=== PATIENT | female | born 1950 | race Caucasian/White ===

== ENCOUNTER 2016-05-03 07:27 | Emergency (ER) | payer MEDICARE, OTHER ==
[2016-05-03 08:12] LABS: #Basophils 0.1 thou/uL (0.0-0.2); #Eosinphils 0.1 thou/uL (0.0-0.7); #Monocytes 0.5 thou/uL (0.11-0.59); #Neutrophils 5.2 thou/uL (1.40-6.50); %Basophils 1.5 % (0.0-1.0); %Eosinophils 1.3 % (0.0-10.0); %Lymphocytes 25.2 % (21.0-51.0); %Monocytes 6.4 % (0.0-10.0); Mean Platelet Volume 6.7 fL (7.4-10.4); Red Blood Cell (RBC) Count 4.56 mill/uL (4.20-5.40); White Blood Cell (WBC) Count 7.9 thou/uL (4.8-10.8)
[2016-05-03 08:17] LABS: Prothrombin Time 13.4 SEC (12.0-14.7)
[2016-05-03 08:25] LABS: ALT (SGPT) 12 U/L (0-55); AST (SGOT) 13 U/L (5-34); Alkaline Phosphatase 59 U/L (40-150); Anion Gap 14 mmol/L (10-20); BUN (Urea Nitrogen) 8 mg/dL (9.8-20.1); Bilirubin, Total 0.7 mg/dL (0.2-1.2); Calc. Creatinine Clearance 0 mL/min (70-130); Carbon Dioxide 23 mmol/L (23-31); Chloride 105 mmol/L (98-107); Estimated GFR-MDRD 75; Globulin 2.1 g/dL (2.4-3.5); Lipase 20 U/L (8-78); Protein, Total 5.9 g/dL (5.8-8.1)
[2016-05-03] MEDS ORDERED: Iopamidol 370 76% 100 ML VIAL ONE (09:00)
--- NOTE | 2016-05-03 09:27 | CT ---
CT OF ABDOMEN AND PELVIS WITH IV CONTRAST: Date: 05-03-16 Comparison: None. History: GI bleeding, abdominal pain. Technique: Serial axial CT imaging is obtained at 5 mm intervals from lung bases through the pubic symphysis with IV contrast. Coronal reformatted imaging obtained. FINDINGS: The imaged lung bases are unremarkable. No free intraperitoneal air is noted. A lap band is in zuhair ce, not fully assessed on this exam. Imaged lung bases are grossly unremarkable. The liver, spleen, gallbladder, pancreas, adrenal glands and kidneys are grossly unremarkable. No significant free fluid is seen in the abdomen or pelvis. There is a segment of thick walled desc ending colon with mild adjacent pericolonic fat stranding. This thick walled segment of descending colon/sigmoid colon measures at least 10 cm in length. No associated extraluminal gas or evidence o f abscess seen. The segment of abnormal colon demonstrates no significant diverticular disease. No evidence for bowel obstruction. No right lower quadrant inflammatory change seen to suggest appe ndicitis. There is scattered atherosclerotic calcification of the abdominal aorta and its branches. There is a circumaortic left renal vein. There is no lymphadenopathy in the pelvis, retroperitoneum, or mesentery. The osseous structures de monstrate lower lumbar spine facet hypertrophic change with no worrisome lytic or blastic bone lesio n. IMPRESSION: 1. Thick walled 10 cm segment of distal descending colon/proximal sigmoid colon with mild adjacent inflammatory fat stranding. These findings are suspicious for a focal area of nonspecific colitis w hich is likely inflammatory/infectious in nature. Ischemic bowel in this region is a less likely po ssibility given location. Recommend direct visualization following treatment and resolution of the acute symptoms to exclude an underlying colonic mass lesion. 2. Lap band in place. If further assessment of the lap band is clinically warranted, a nonemergent follow up barium swallow is suggested. Code T POS: STEPHEN
[2016-05-03] MEDS ORDERED: Ciprofloxacin Lactate/D5W 400 mg/200 ml Premix ONE (09:36)
== END 2016-05-03 10:37 | disposition home or self-care (01) ==
LOC: NAV ERS 07:27
DX: K52.9 Noninfective gastroenteritis and colitis, unspecified (principal); F32.9 Major depressive disorder, single episode, unspecified; F41.9 Anxiety disorder, unspecified; Z79.899 Other long term (current) drug therapy
CPT/HCPCS: 74177; 80053; 82272; 83690; 85025; 85610; 85730; 96365; J0744

== ENCOUNTER 2018-07-25 23:26 | Emergency (ER) | payer MEDICARE, OTHER ==
[2018-07-26 00:16] LABS: #Basophils 0.1 thou/uL (0.0-0.2); #Eosinphils 0.1 thou/uL (0.0-0.7); #Lymphocytes 0.8 thou/uL (1.20-3.40); #Monocytes 0.6 thou/uL (0.11-0.59); #Neutrophils 7.7 thou/uL (1.40-6.50); %Basophils 1.1 % (0.0-1.0); %Lymphocytes 8.1 % (21.0-51.0); %Monocytes 6.2 % (0.0-10.0); %Neutrophils 83.6 % (42.0-75.0); Hemoglobin 8.9 g/dL (12.0-16.0); Mean Corpuscular HGB CONC 32.4 g/dL (32.0-36.0); Mean Corpuscular Hemoglobin 27.9 pg (27.0-31.0); Mean Corpuscular Volume 86.1 fL (78.0-98.0); Mean Platelet Volume 6.6 fL (7.4-10.4); Platelet Count 224 thou/uL (130-400); RBC Distribution Width 11.6 % (11.5-14.5); Red Blood Cell (RBC) Count 3.18 mill/uL (4.20-5.40); White Blood Cell (WBC) Count 9.2 thou/uL (4.8-10.8)
[2018-07-26 00:29] LABS: ALT (SGPT) 15 U/L (8-55); AST (SGOT) 32 U/L (5-34); Albumin 3.3 g/dL (3.4-4.8); Alkaline Phosphatase 56 U/L (40-150); Anion Gap 14 mmol/L (10-20); BUN (Urea Nitrogen) 12 mg/dL (9.8-20.1); Bilirubin, Total 0.8 mg/dL (0.2-1.2); Calc. Creatinine Clearance 0 mL/min (70-130); Calcium 8.7 mg/dL (7.8-10.44); Carbon Dioxide 22 mmol/L (23-31); Chloride 101 mmol/L (98-107); Estimated GFR-MDRD 73; Globulin 2.1 g/dL (2.4-3.5); Glucose 108 mg/dL (80-115); Potassium 3.5 mmol/L (3.5-5.1); Protein, Total 5.4 g/dL (6.0-8.3); Sodium 133 mmol/L (136-145)
[2018-07-26 01:18] LABS: Bilirubin Negative (Negative); Blood, Urine Large (Negative); Clarity Clear (Clear); Glucose, Urine (Dipstick) Negative (Negative); Leukocyte Trace (Negative); Nitrite Negative (Negative); Protein, Urine (Dipstick) Negative (Neg-Trace); Urobilinogen 0.2 mg/dL (0.2-1.0)
[2018-07-26 01:21] LABS: Squamous Epithelial 0-3 HPF (0-3); WBC/HPF 0-3 HPF (0-3)
[2018-07-26 01:22] LABS: Bacteria/HPF None Seen HPF (None Seen)
--- NOTE | 2018-07-26 09:00 | CT ---
PRELIMINARY REPORT/[facility]/EMERGENCY AFTER HOURS PROCEDURE: EXAM: CT Head Without Contrast EXAM DATE/TIME: 07/26/2018 12:25 AM CLINICAL HISTORY: 68 years old, female; Signs and symptoms; Syncope and collapse; Patient HX: Altered mental status; Sl urred speech; Fell x 2 today TECHNIQUE: Imaging protocol: Axial computed tomography images of the head without contrast. Coronal and sagittal reformatted images were created and reviewed. Radiation optimization: All CT scans at this facility use at least one of these dose optimization techniques: automated exposure control; mA and/or kV adju stment per patient size (includes targeted exams where dose is matched to clinical indication); or iterative reconstruction. COMPARISON: No relevant prior studies available. FINDINGS: Brain: Normal. No hemorrhage. Unremarkable white matter. No mass effect. Ventricles: Normal. No ventriculomegaly. Bones/joints: Unremarkable. No acute fracture. Sinuses: Visualized sinuses are unremarkable. No fluid levels. Mastoid air cells: Visualized mastoid air cells are well aerated. No mastoid effusion. Soft tissues: Unremarkable. IMPRESSION: No acute intracranial abnormality. Thank you for allowing us to participate in the care of your patient. Dictated and Authenticated by: Danny Miguel MD 07/26/2018 1:11 AM Central Time ([place] & [place]) FINAL REPORT CT BRAIN WITHOUT CONTRAST: I agree with the preliminary report provided. No acute intracranial abnormality demonstrated. POS: BH
== END 2018-07-26 01:51 | disposition home or self-care (01) ==
LOC: NAV ERS 23:26
DX: R47.81 Slurred speech (principal); R41.0 Disorientation, unspecified; T40.2X5A Adverse effect of other opioids, initial encounter; M25.551 Pain in right hip; F41.9 Anxiety disorder, unspecified; F32.9 Major depressive disorder, single episode, unspecified; Z79.899 Other long term (current) drug therapy
CPT/HCPCS: 70450; 80053; 81003; 81015; 85025

== ENCOUNTER 2019-12-11 11:34 | Emergency (ER) | payer MEDICARE, OTHER ==
[2019-12-11] MEDS ORDERED: Acetaminophen 500 MG TAB ONE (11:49)
[2019-12-11] MEDS ORDERED: Ondansetron PF 4 MG/2 ML Vial ONE (12:24)
[2019-12-11 12:25] LABS: #Basophils 0.1 thou/uL (0.0-0.2); #Eosinphils 0.1 thou/uL (0.0-0.7); #Lymphocytes 1.1 thou/uL (1.20-3.40); #Monocytes 0.4 thou/uL (0.11-0.59); %Basophils 0.3 % (0.0-1.0); %Eosinophils 0.3 % (0.0-10.0); %Lymphocytes 6.8 % (21.0-51.0); %Monocytes 2.6 % (0.0-10.0); %Neutrophils 89.9 % (42.0-75.0); Hemoglobin 12.6 g/dL (12.0-16.0); Mean Corpuscular HGB CONC 32.4 g/dL (32.0-36.0); Mean Corpuscular Hemoglobin 28.3 pg (27.0-31.0); Mean Corpuscular Volume 87.3 fL (78.0-98.0); Mean Platelet Volume 6.9 fL (7.4-10.4); Platelet Count 334 thou/uL (130-400); RBC Distribution Width 11.7 % (11.5-14.5); Red Blood Cell (RBC) Count 4.44 mill/uL (4.20-5.40); White Blood Cell (WBC) Count 15.6 thou/uL (4.8-10.8)
[2019-12-11 12:32] LABS: Bilirubin Negative (Negative); Clarity Clear (Clear); Glucose, Urine (Dipstick) Negative (Negative); Ketone, Urine Negative (Negative); Leukocyte Negative (Negative); Nitrite Negative (Negative); Protein, Urine (Dipstick) Negative (Neg-Trace); Urobilinogen 0.2 mg/dL (Less than 2)
--- NOTE | 2019-12-11 12:32 | RAD ---
2 VIEW CHEST: Date: 12/11/2019 HISTORY: Cough and shortness of breath. COMPARISON: No recent comparison film. A 2012 portable film is compared. FINDINGS: No evidence of infiltrate. Mild interstitial prominence bilaterally. The vascular markings are within normal range. Heart size is normal. IMPRESSION: Mild increased interstitium bilaterally. No focal infiltrate or consolidation. POS: AGW
[2019-12-11 12:35] LABS: Blood, Urine Negative (Negative)
[2019-12-11 12:38] LABS: ALT (SGPT) 7 U/L (8-55); AST (SGOT) 11 U/L (5-34); Albumin 3.8 g/dL (3.4-4.8); Alkaline Phosphatase 57 U/L (40-110); Anion Gap 15 mmol/L (10-20); BUN (Urea Nitrogen) 12 mg/dL (9.8-20.1); Bilirubin, Total 0.6 mg/dL (0.2-1.2); Calc. Creatinine Clearance 0 mL/min (70-130); Calcium 9.2 mg/dL (7.8-10.44); Carbon Dioxide 23 mmol/L (23-31); Chloride 104 mmol/L (98-107); Estimated GFR-MDRD 68; Globulin 2.5 g/dL (2.4-3.5); Glucose 109 mg/dL (83-110); Potassium 4.1 mmol/L (3.5-5.1); Protein, Total 6.3 g/dL (6.0-8.3); Sodium 138 mmol/L (136-145)
[2019-12-11] MEDS ORDERED: Ibuprofen 200 MG TAB ONE (13:02)
[2019-12-11 13:31] LABS: Lactic Acid 2.1 mmol/L (0.5-2.2)
[2019-12-12 11:45] LABS: SARS-CoV-2 MS2 Positive; SARS-CoV-2 N Gene Negative; SARS-CoV-2 S Gene Negative; SARS-CoV-2 by NAA Not Detected (NotDetected); SARS-CoV-2 orf1ab Negative
== END 2019-12-11 14:10 | disposition home or self-care (01) ==
LOC: NAV ERS 11:34
DX: R50.9 Fever, unspecified (principal); Z20.828 Contact with and (suspected) exposure to other viral communicable diseases; F41.9 Anxiety disorder, unspecified; F32.9 Major depressive disorder, single episode, unspecified; Z85.41 Personal history of malignant neoplasm of cervix uteri; Z79.899 Other long term (current) drug therapy
CPT/HCPCS: 71046; 80053; 81003; 83605; 85025; 87040; 87635; 87804; 96374; J2405; U0003

== ENCOUNTER 2022-06-28 15:13 | Outpatient (CLI) | payer MEDICARE, OTHER ==
[2022-06-29 01:30] LABS: Iron 16 ug/dL (50-170); Iron Binding Capacity, Total 443 mcg/dL (265-497)
== END 2022-06-28 15:14 | disposition home or self-care (01) ==
LOC: NAV RAD 15:13
PROVIDERS: ATTEND Nurse Practitioner Family
DX: D64.9 Anemia, unspecified (principal)
CPT/HCPCS: 36415; 71046; 82728; 83540; 83550

== ENCOUNTER 2022-07-23 16:06 | Emergency (ER) | payer MEDICARE, OTHER ==
[2022-07-23] MEDS ORDERED: methylPREDNISolone Acetate 40 mg/ml Vial ONE (17:04)
== END 2022-07-23 17:28 | disposition home or self-care (01) ==
LOC: NAV ERS 16:06
DX: T78.40XA Allergy, unspecified, initial encounter (principal); K21.9 Gastro-esophageal reflux disease without esophagitis
CPT/HCPCS: 96372; 99283; J1030

== ENCOUNTER 2023-03-20 12:18 | Emergency (ER) | payer MEDICARE, OTHER ==
[2023-03-20 13:58] LABS: #Eosinphils 0.1 thou/uL (0.0-0.7); #Lymphocytes 0.8 thou/uL (1.20-3.40); #Monocytes 0.1 thou/uL (0.11-0.59); #Neutrophils 0.9 thou/uL (1.40-6.50); %Basophils 2.2 % (0.0-1.0); %Eosinophils 3.6 % (0.0-10.0); %Lymphocytes 39.4 % (21.0-51.0); %Monocytes 6.8 % (0.0-10.0); Hematocrit 28.3 % (36.0-47.0); Hemoglobin 9.7 g/dL (12.0-16.0); Mean Corpuscular HGB CONC 34.4 g/dL (32.0-36.0); Mean Corpuscular Hemoglobin 34.2 pg (27.0-31.0); Mean Corpuscular Volume 99.5 fl (78.0-98.0); Mean Platelet Volume 6.4 fL (7.4-10.4); Platelet Count 206 10x3/uL (130-400); RBC Distribution Width 13.8 % (11.5-14.5); Red Blood Cell (RBC) Count 2.85 mill/uL (4.20-5.40)
[2023-03-20 14:10] LABS: ALT (SGPT) 12 U/L (8-55); AST (SGOT) 14 U/L (5-34); Albumin 3.3 g/dL (3.4-4.8); Alkaline Phosphatase 52 U/L (40-110); Anion Gap 12 mmol/L (10-20); BUN (Urea Nitrogen) 13 mg/dL (9.8-20.1); Bilirubin, Total 1.8 mg/dL (0.2-1.2); Calc. Creatinine Clearance 0 mL/min (70-130); Calcium 8.6 mg/dL (7.8-10.44); Carbon Dioxide 23 mmol/L (23-31); Chloride 102 mmol/L (98-107); Estimated GFR 91; Glucose 100 mg/dL (83-110); Potassium 3.7 mmol/L (3.5-5.1); Protein, Total 5.3 g/dL (5.8-8.1); Sodium 133 mmol/L (136-145)
[2023-03-20 14:45] LABS: Bilirubin Small (Negative); Blood, Urine Trace (Negative); Glucose, Urine (Dipstick) 100 mg/dL (Negative); Ketone, Urine 40 mg/dL (Negative); Leukocyte Negative (Negative); Nitrite Negative (Negative); Protein, Urine (Dipstick) Negative (Neg-Trace); Urobilinogen 0.2 mg/dL (Less than 2)
[2023-03-20 15:02] LABS: CAUTI Indications for Culture Alt mental st,lethar; Clarity Hazy (Clear); RBC/HPF 0-3 HPF (0-3); Squamous Epithelial 0-3 HPF (0-3); WBC/HPF 0-3 HPF (0-3)
[2023-03-20 15:03] LABS: Calcium Oxalate Crystals 1+ HPF (None Seen)
[2023-03-20 15:04] LABS: Urine Culture Reflex No No
[2023-03-20] MEDS ORDERED: traMADol HCl 50 MG TAB ONE (15:27)
== END 2023-03-20 15:50 | disposition home or self-care (01) ==
LOC: NAV LAB 12:18 → NAV ERS 15:50
DX: S22.42XA Multiple fractures of ribs, left side, initial encounter for closed fracture (principal); R56.9 Unspecified convulsions; W18.30XA Fall on same level, unspecified, initial encounter
CPT/HCPCS: 80053; 81001; 85025; 93005

== ENCOUNTER 2023-04-10 17:37 | Inpatient (IN) | payer MEDICARE, OTHER ==
[2023-04-10] MEDS ORDERED: Senokot S 8.6-50 MG TAB PO PRN (18:38)
[2023-04-10] MEDS ORDERED: Ondansetron ODT 4 MG TAB SL PRN (18:38)
[2023-04-10] MEDS ORDERED: Bisacodyl 5 MG TAB PO PRN (18:38)
[2023-04-10] MEDS ORDERED: Loperamide HCl 2 MG CAP PO PRN (18:38)
[2023-04-10] MEDS ORDERED: Meropenem 1 GM VIAL IVPB SCH (20:00)
[2023-04-10] MEDS: Meropenem 1 GM in Sodium Chloride 0.9% 100 ML IVPB SCH (20:44)
[2023-04-10] MEDS: Famotidine 20 MG TAB PO SCH (20:45)
[2023-04-10] MEDS: Sodium Bicarbonate Tab 325 MG TAB PO SCH (20:45)
[2023-04-11 06:15] LABS: #Basophils 0.1 thou/uL (0.0-0.2); #Lymphocytes 0.7 thou/uL (1.20-3.40); #Monocytes 0.3 thou/uL (0.11-0.59); #Neutrophils 0.1 thou/uL (1.40-6.50); %Eosinophils 2.7 % (0.0-10.0); %Lymphocytes 56.5 % (21.0-51.0); %Monocytes 25.4 % (0.0-10.0); %Neutrophils 9.5 % (42.0-75.0); ALT (SGPT) 10 U/L (8-55); AST (SGOT) 12 U/L (5-34); Albumin 2.3 g/dL (3.4-4.8); Alkaline Phosphatase 59 U/L (40-110); Anion Gap 10 mmol/L (10-20); BUN (Urea Nitrogen) 4 mg/dL (9.8-20.1); Bilirubin, Total 1.4 mg/dL (0.2-1.2); Calc. Creatinine Clearance 103 mL/min (70-130); Calcium 8.1 mg/dL (7.8-10.44); Carbon Dioxide 24 mmol/L (23-31); Chloride 102 mmol/L (98-107); Estimated GFR 96; Globulin 1.4 g/dL (2.4-3.5); Glucose 89 mg/dL (83-110); Hematocrit 25.9 % (36.0-47.0); Hemoglobin 9.1 g/dL (12.0-16.0); Mean Corpuscular HGB CONC 35.3 g/dL (32.0-36.0); Mean Corpuscular Hemoglobin 34.4 pg (27.0-31.0); Mean Corpuscular Volume 97.6 fl (78.0-98.0); Mean Platelet Volume 5.6 fL (7.4-10.4); Platelet Count 244 10x3/uL (130-400); Potassium 3.3 mmol/L (3.5-5.1); Protein, Total 3.7 g/dL (5.8-8.1); RBC Distribution Width 16.5 % (11.5-14.5); Red Blood Cell (RBC) Count 2.65 mill/uL (4.20-5.40); Sodium 133 mmol/L (136-145); White Blood Cell (WBC) Count 1.2 10x3/uL (4.8-10.8)
[2023-04-11] MEDS: Enoxaparin 40 MG (0.4 mL) SYRINGE SC SCH (08:39)
[2023-04-11] MEDS: Magnesium Oxide 400 MG TAB PO SCH (08:40)
[2023-04-11] MEDS: Potassium Chloride 20 MEQ TAB PO SCH (08:40)
[2023-04-11] MEDS: Folic Acid 1 MG TAB PO SCH (08:40)
[2023-04-11] MEDS: Cholecalciferol (Vitamin D3) 400 UNITS TAB PO SCH (08:40)
[2023-04-12] MEDS: Potassium Chloride 20 MEQ TAB PO SCH (08:56)
[2023-04-13 06:13] LABS: Anion Gap 10 mmol/L (10-20); BUN (Urea Nitrogen) 6 mg/dL (9.8-20.1); Calc. Creatinine Clearance 103 mL/min (70-130); Calcium 8.3 mg/dL (7.8-10.44); Carbon Dioxide 26 mmol/L (23-31); Chloride 102 mmol/L (98-107); Estimated GFR 96; Glucose 85 mg/dL (83-110); Potassium 3.6 mmol/L (3.5-5.1); Sodium 134 mmol/L (136-145)
[2023-04-13 06:54] LABS: Hematocrit 27.4 % (36.0-47.0); Hemoglobin 9.4 g/dL (12.0-16.0); Mean Corpuscular HGB CONC 34.4 g/dL (32.0-36.0); Mean Corpuscular Hemoglobin 34.6 pg (27.0-31.0); Mean Platelet Volume 5.6 fL (7.4-10.4); Platelet Count 254 10x3/uL (130-400); Red Blood Cell (RBC) Count 2.73 mill/uL (4.20-5.40); White Blood Cell (WBC) Count 1.5 10x3/uL (4.8-10.8)
[2023-04-13 06:55] LABS: Lymphocytes 30 % (21-51); MDiff Complete? YES; Neutrophil 6 % (42-75)
[2023-04-13 06:56] LABS: Anisocytosis SLIGHT = 6-15 cells (100X) (0-5/hpf); Eosinophils 8 % (0-10); Macrocytosis SLIGHT = 6-15 cells (100X) (0-5/hpf); Monocytes 21 % (0-10); Reactive Lymphocytes 7 % (0-10)
[2023-04-13] MEDS: Potassium Bicarbonate/Cit Ac 25 MEQ TAB PO SCH (08:34)
[2023-04-13] MEDS: Loperamide HCl 2 MG CAP PO PRN (08:55)
[2023-04-15 06:43] LABS: Anion Gap 10 mmol/L (10-20); BUN (Urea Nitrogen) 5 mg/dL (9.8-20.1); Calc. Creatinine Clearance 95 mL/min (70-130); Calcium 8.7 mg/dL (7.8-10.44); Carbon Dioxide 27 mmol/L (23-31); Chloride 102 mmol/L (98-107); Estimated GFR 94; Glucose 87 mg/dL (83-110); Potassium 3.8 mmol/L (3.5-5.1); Sodium 135 mmol/L (136-145)
[2023-04-15 06:59] LABS: Anisocytosis SLIGHT = 6-15 cells (100X) (0-5/hpf); Hematocrit 28.3 % (36.0-47.0); Hemoglobin 9.7 g/dL (12.0-16.0); Lymphocytes 78 % (21-51); MDiff Complete? YES; Macrocytosis SLIGHT = 6-15 cells (100X) (0-5/hpf); Mean Corpuscular HGB CONC 34.4 g/dL (32.0-36.0); Mean Corpuscular Hemoglobin 35.2 pg (27.0-31.0); Mean Platelet Volume 6.3 fL (7.4-10.4); Monocytes 6 % (0-10); Platelet Adequacy Comment Appears Adequate; Platelet Count 254 10x3/uL (130-400); Polychromasia SLIGHT = 2-3 cells (100X) (0-2/hpf); Red Blood Cell (RBC) Count 2.77 mill/uL (4.20-5.40)
[2023-04-15 07:00] LABS: White Blood Cell (WBC) Count 1.9 10x3/uL (4.8-10.8)
[2023-04-15 07:01] LABS: Neutrophil 16 % (42-75)
[2023-04-18] MEDS ORDERED: Furosemide 20 MG TAB PO SCH (17:00)
[2023-04-18] MEDS: Furosemide 20 MG TAB PO SCH (19:48)
[2023-04-19 05:55] LABS: #Basophils 0.1 thou/uL (0.0-0.2); #Eosinphils 0.1 thou/uL (0.0-0.7); #Lymphocytes 1.3 thou/uL (1.20-3.40); #Monocytes 0.4 thou/uL (0.11-0.59); #Neutrophils 1.8 thou/uL (1.40-6.50); %Basophils 2.2 % (0.0-1.0); %Eosinophils 3.9 % (0.0-10.0); %Monocytes 11.4 % (0.0-10.0); %Neutrophils 47.5 % (42.0-75.0); Hematocrit 27.1 % (36.0-47.0); Hemoglobin 9.3 g/dL (12.0-16.0); Mean Corpuscular HGB CONC 34.4 g/dL (32.0-36.0); Mean Corpuscular Hemoglobin 35.1 pg (27.0-31.0); Mean Platelet Volume 6.3 fL (7.4-10.4); Platelet Count 233 10x3/uL (130-400); RBC Distribution Width 16.1 % (11.5-14.5); Red Blood Cell (RBC) Count 2.66 mill/uL (4.20-5.40); White Blood Cell (WBC) Count 3.8 10x3/uL (4.8-10.8)
[2023-04-19 06:10] LABS: Anion Gap 10 mmol/L (10-20); BUN (Urea Nitrogen) 6 mg/dL (9.8-20.1); Calc. Creatinine Clearance 92 mL/min (70-130); Calcium 8.5 mg/dL (7.8-10.44); Carbon Dioxide 26 mmol/L (23-31); Chloride 100 mmol/L (98-107); Estimated GFR 93; Glucose 84 mg/dL (83-110); Potassium 3.2 mmol/L (3.5-5.1); Sodium 133 mmol/L (136-145)
[2023-04-19] MEDS: Potassium Chloride 20 MEQ TAB PO SCH (09:39)
[2023-04-19] MEDS: Furosemide 40 MG TAB PO SCH (17:30)
[2023-04-20 07:04] LABS: Anion Gap 11 mmol/L (10-20); BUN (Urea Nitrogen) 6 mg/dL (9.8-20.1); Calc. Creatinine Clearance 86 mL/min (70-130); Calcium 8.8 mg/dL (7.8-10.44); Carbon Dioxide 30 mmol/L (23-31); Chloride 97 mmol/L (98-107); Estimated GFR 92; Glucose 82 mg/dL (83-110); Potassium 3.2 mmol/L (3.5-5.1); Sodium 135 mmol/L (136-145)
[2023-04-20 07:18] LABS: Hematocrit 28.5 % (36.0-47.0); Hemoglobin 9.6 g/dL (12.0-16.0); Platelet Count 223 10x3/uL (130-400)
[2023-04-20] MEDS: Potassium Chloride 20 MEQ TAB PO SCH ×2 (09:06→16:58)
[2023-04-21 06:02] LABS: Chloride 103 mmol/L (98-107); Potassium 3.6 mmol/L (3.5-5.1); Sodium 135 mmol/L (136-145)
[2023-04-21 06:03] LABS: BUN (Urea Nitrogen) 5 mg/dL (9.8-20.1); Calc. Creatinine Clearance 89 mL/min (70-130); Calcium 8.8 mg/dL (7.6-10.4); Carbon Dioxide 25 mmol/L (23-31); Estimated GFR 93; Glucose 84 mg/dL (83-110)
[2023-04-21 08:00] LABS: Anion Gap 11 mmol/L (10-20)
[2023-04-22 11:08] LABS: #Basophils 0.1 thou/uL (0.0-0.2); #Eosinphils 0.1 thou/uL (0.0-0.7); #Lymphocytes 1.1 thou/uL (1.20-3.40); #Monocytes 0.4 thou/uL (0.11-0.59); #Neutrophils 2.3 thou/uL (1.40-6.50); %Basophils 2.5 % (0.0-1.0); %Eosinophils 1.9 % (0.0-10.0); %Lymphocytes 27.5 % (21.0-51.0); %Monocytes 9.6 % (0.0-10.0); %Neutrophils 58.5 % (42.0-75.0); Anisocytosis SLIGHT = 6-15 cells (100X) (0-5/hpf); Hematocrit 28.4 % (36.0-47.0); MDiff Complete? YES; Macrocytosis SLIGHT = 6-15 cells (100X) (0-5/hpf); Mean Corpuscular HGB CONC 35.3 g/dL (32.0-36.0); Mean Corpuscular Hemoglobin 35.9 pg (27.0-31.0); Platelet Adequacy Comment Appears Adequate; Platelet Count 206 10x3/uL (130-400); RBC Distribution Width 14.8 % (11.5-14.5); White Blood Cell (WBC) Count 3.9 10x3/uL (4.8-10.8)
[2023-04-22] MEDS: Furosemide 40 MG TAB PO SCH (12:26)
[2023-04-24 06:07] LABS: Anion Gap 11 mmol/L (10-20); BUN (Urea Nitrogen) 6 mg/dL (9.8-20.1); Calc. Creatinine Clearance 87 mL/min (70-130); Calcium 8.8 mg/dL (7.8-10.44); Carbon Dioxide 22 mmol/L (23-31); Chloride 103 mmol/L (98-107); Estimated GFR 92; Glucose 85 mg/dL (83-110); Potassium 4.1 mmol/L (3.5-5.1); Sodium 132 mmol/L (136-145)
[2023-04-25 14:11] LABS: Bilirubin Negative (Negative); Blood, Urine Small (Negative); Clarity Cloudy (Clear); Glucose, Urine (Dipstick) Negative (Negative); Ketone, Urine Negative (Negative); Leukocyte Large (Negative); Nitrite Positive (Negative); Protein, Urine (Dipstick) Negative (Neg-Trace); Specific Gravity, Urine 1.025 (1.005-1.030); Urobilinogen 0.2 mg/dL (Less than 2)
[2023-04-25 14:20] LABS: Bacteria/HPF 2+ HPF (None Seen); CAUTI Indications for Culture Dysuria,urgency,freq; Squamous Epithelial 0-3 HPF (0-3); WBC/HPF 21-50 HPF (0-3)
[2023-04-25 14:22] LABS: Urine Culture Reflex Yes Yes
[2023-04-26] MEDS: Meropenem 1 GM in Sodium Chloride 0.9% 100 ML IVPB SCH (20:20)
[2023-04-27 06:05] LABS: #Basophils 0.1 thou/uL (0.0-0.2); #Eosinphils 0.4 thou/uL (0.0-0.7); #Lymphocytes 0.8 thou/uL (1.20-3.40); #Monocytes 0.5 thou/uL (0.11-0.59); #Neutrophils 5.1 thou/uL (1.40-6.50); %Eosinophils 5.7 % (0.0-10.0); %Lymphocytes 11.1 % (21.0-51.0); %Monocytes 6.6 % (0.0-10.0); %Neutrophils 75.6 % (42.0-75.0); Hematocrit 27.5 % (36.0-47.0); Hemoglobin 9.4 g/dL (12.0-16.0); Mean Corpuscular HGB CONC 34.2 g/dL (32.0-36.0); Platelet Count 213 10x3/uL (130-400); RBC Distribution Width 13.7 % (11.5-14.5); Red Blood Cell (RBC) Count 2.69 mill/uL (4.20-5.40); White Blood Cell (WBC) Count 6.8 10x3/uL (4.8-10.8)
[2023-04-27 06:19] LABS: Anion Gap 13 mmol/L (10-20); BUN (Urea Nitrogen) 6 mg/dL (9.8-20.1); Calc. Creatinine Clearance 85 mL/min (70-130); Calcium 8.8 mg/dL (7.8-10.44); Carbon Dioxide 19 mmol/L (23-31); Chloride 104 mmol/L (98-107); Estimated GFR 92; Glucose 93 mg/dL (83-110); Potassium 4.2 mmol/L (3.5-5.1); Sodium 132 mmol/L (136-145)
[2023-04-28 05:46] LABS: Hematocrit 25.9 % (36.0-47.0); Hemoglobin 8.9 g/dL (12.0-16.0)
[2023-04-28 05:47] LABS: Platelet Count 207 10x3/uL (130-400)
[2023-04-29 06:49] LABS: Anion Gap 10 mmol/L (10-20); BUN (Urea Nitrogen) 7 mg/dL (9.8-20.1); Calc. Creatinine Clearance 82 mL/min (70-130); Calcium 8.6 mg/dL (7.8-10.44); Carbon Dioxide 22 mmol/L (23-31); Chloride 103 mmol/L (98-107); Estimated GFR 91; Glucose 86 mg/dL (83-110); Potassium 3.9 mmol/L (3.5-5.1); Sodium 131 mmol/L (136-145)
[2023-04-29 07:05] LABS: #Basophils 0.1 thou/uL (0.0-0.2); #Eosinphils 0.6 thou/uL (0.0-0.7); #Monocytes 0.6 thou/uL (0.11-0.59); #Neutrophils 2.6 thou/uL (1.40-6.50); %Basophils 1.2 % (0.0-1.0); %Lymphocytes 20.9 % (21.0-51.0); %Monocytes 11.8 % (0.0-10.0); %Neutrophils 54.1 % (42.0-75.0); Hematocrit 27.3 % (36.0-47.0); Hemoglobin 9.2 g/dL (12.0-16.0); MDiff Complete? YES; Macrocytosis SLIGHT = 6-15 cells (100X) (0-5/hpf); Mean Corpuscular HGB CONC 33.8 g/dL (32.0-36.0); Mean Corpuscular Hemoglobin 34.5 pg (27.0-31.0); Mean Platelet Volume 6.3 fL (7.4-10.4); Platelet Count 216 10x3/uL (130-400); RBC Distribution Width 13.4 % (11.5-14.5); Red Blood Cell (RBC) Count 2.67 mill/uL (4.20-5.40); White Blood Cell (WBC) Count 4.8 10x3/uL (4.8-10.8)
[2023-04-30 06:24] LABS: Anion Gap 10 mmol/L (10-20); BUN (Urea Nitrogen) 6 mg/dL (9.8-20.1); Calc. Creatinine Clearance 86 mL/min (70-130); Calcium 8.7 mg/dL (7.8-10.44); Carbon Dioxide 23 mmol/L (23-31); Chloride 104 mmol/L (98-107); Estimated GFR 92; Glucose 118 mg/dL (83-110); Potassium 4.1 mmol/L (3.5-5.1); Sodium 133 mmol/L (136-145)
[2023-04-30 07:03] LABS: #Basophils 0.1 thou/uL (0.0-0.2); #Eosinphils 0.6 thou/uL (0.0-0.7); #Lymphocytes 1.1 thou/uL (1.20-3.40); #Monocytes 0.6 thou/uL (0.11-0.59); #Neutrophils 2.9 thou/uL (1.40-6.50); %Basophils 1.2 % (0.0-1.0); %Eosinophils 11.3 % (0.0-10.0); %Lymphocytes 21.4 % (21.0-51.0); %Monocytes 10.7 % (0.0-10.0); %Neutrophils 55.4 % (42.0-75.0); Hematocrit 27.2 % (36.0-47.0); Hemoglobin 9.2 g/dL (12.0-16.0); Mean Corpuscular HGB CONC 33.7 g/dL (32.0-36.0); Mean Corpuscular Hemoglobin 34.3 pg (27.0-31.0); Mean Platelet Volume 6.4 fL (7.4-10.4); Platelet Count 247 10x3/uL (130-400); RBC Distribution Width 13.4 % (11.5-14.5); Red Blood Cell (RBC) Count 2.67 mill/uL (4.20-5.40); White Blood Cell (WBC) Count 5.2 10x3/uL (4.8-10.8)
[2023-05-03 03:43] VITALS: BMI 26.2
[2023-05-03] MEDS: Acetaminophen 325 MG TAB PO PRN (10:49)
[2023-05-04 13:51] VITALS: BP 121/61; TEMP 97
== END 2023-05-04 13:00 | disposition home health service (06) | DRG 690 ==
LOC: NAV ACUTE 17:37
PROVIDERS: ADMIT Family Medicine; ATTEND Family Medicine
DX: N39.0 Urinary tract infection, site not specified (principal); C18.9 Malignant neoplasm of colon, unspecified; E87.20 Acidosis, unspecified; Z16.24 Resistance to multiple antibiotics; R53.81 Other malaise; K21.9 Gastro-esophageal reflux disease without esophagitis; Z66 Do not resuscitate; R42 Dizziness and giddiness; E87.6 Hypokalemia; R53.1 Weakness; R13.10 Dysphagia, unspecified; D53.9 Nutritional anemia, unspecified; Z90.49 Acquired absence of other specified parts of digestive tract; Z98.890 Other specified postprocedural states; Z88.0 Allergy status to penicillin; Z88.8 Allergy status to other drugs, medicaments and biological substances; Z79.899 Other long term (current) drug therapy
CPT/HCPCS: 36415; 36416; 80048; 80053; 81001; 82565; 85014; 85018; 85025; 85049; 87077; 87086; 87186; J1642; J1650; J2185; J3490